=== PATIENT | female | born 1975 | race Caucasian/White ===

== ENCOUNTER 2023-06-17 08:30 | Day surgery (SDC) | payer OTHER ==
[2023-06-17 08:59] VITALS: TEMP 98
[2023-06-17] MEDS ORDERED: LACTATED RINGERS 1,000 ML IV ONE ×2 (08:59)
[2023-06-17] MEDS ORDERED: LIDOCAINE 2% INJ 20 MG/ML (2 ML VIAL) ONE (09:43)
[2023-06-17] MEDS ORDERED: PROPOFOL 10 MG/ML 20 ML VIAL IV ONE (09:43)
--- NOTE | 2023-06-17 09:47 | P.GSHP ---
History of Present Illness H&P Date: 06/17/23 Chief Complaint: GERD esophagitis This a 47-year-old female with complaints of GERD. Patient presents today for EGD. Past Medical History Past Medical History: GERD/Reflux History of Any Multi-Drug Resistant Organisms: None Reported Past Surgical History: Cholecystectomy, Orthopedic Surgery, Tubal Ligation Additional Past Surgical History / Comment(s): carpal tunnel rt, cubital relasease rt, Past Anesthesia/Blood Transfusion Reactions: No Reported Reaction Additional Past Anesthesia/Blood Transfusion Reaction / Comment(s): emotinal after surgery Smoking Status: Former smoker, Vaper Medications and Allergies Home Medications Medication Instructions Recorded Confirmed Type Famotidine 20 mg PO DAILY 06/14/23 06/14/23 History Mirapex (Unk) 0.75 mg PO DAILY 06/14/23 06/14/23 History Allergies Allergy/AdvReac Type Severity Reaction Status Date / Time No Known Allergies Allergy Verified 06/14/23 10:06 Surgical - Exam Vital Signs Temp Pulse Resp BP Pulse Ox 98 F 78 18 137/78 98 06/17/23 08:58 06/17/23 08:58 06/17/23 08:58 06/17/23 08:58 06/17/23 08:58 - General well developed, well nourished, no distress - Eyes PERRL - ENT normal pinna - Neck no masses - Respiratory normal expansion - Cardiovascular Rhythm: regular - Abdomen Abdomen: soft, non tender Assessment and Plan Assessment: GERD. We'll perform EGD.
--- NOTE | 2023-06-17 09:52 | P.OP ---
Date of Procedure: 06/17/23 Preoperative Diagnosis: GERD Postoperative Diagnosis: Antral gastritis Hiatal hernia Mild esophagitis Procedure(s) Performed: EGD Anesthesia: MAC Surgeon: Abraham Ortiz Pathology: other (Antrum, esophagus) Condition: stable Disposition: PACU Description of Procedure: The patient's placed on the endoscopy table in the lateral position. She received IV sedation. The gastro-placed oropharynx passed in the esophagus and the stomach. Scope some placed through the pylorus. The first and second porti on of the duodenum appeared normal. Scope summer back the antrum this. Mildly inflamed. A biopsies performed. The scope was unretroflexed and remainder the stomach appeared normal. There was a small hiatal hernia. The GE junction was at 38 cm. The distal esophagus appeared mildly inflamed. A biopsies performed. The proximal esophagus appeared normal. Scope withdrawn for patient.
[2023-06-17 10:01] VITALS: RESP 16
[2023-06-17 10:39] VITALS: BP 145/78; PULSE 72
== END 2023-06-17 11:04 | disposition home or self-care (01) ==
LOC: ORWHC2ENDO 08:30
PROVIDERS: ATTEND Surgery
DX: K21.00 Gastro-esophageal reflux disease with esophagitis, without bleeding (principal); K44.9 Diaphragmatic hernia without obstruction or gangrene; K29.50 Unspecified chronic gastritis without bleeding; Z87.891 Personal history of nicotine dependence; Z90.49 Acquired absence of other specified parts of digestive tract; Z98.51 Tubal ligation status; Z79.899 Other long term (current) drug therapy
CPT/HCPCS: 81025; 88305; 43239; J2704; J2001